=== PATIENT | female | born 1975 | race Caucasian/White ===

== ENCOUNTER → 2018-12-18 | Outpatient (CLI) | payer OTHER ==
--- NOTE | 2018-12-18 14:01 | RAD ---
EXAM: 1. Ultrasound-guided left breast biopsy with clip placement. 2. Postclip digital mammography. HISTORY: Left breast mass. Biopsy is requested. COMPARISON: 11/27/2018. FINDINGS: The procedure along with its risks and benefits were explained to the patient. She agreed to proceed. A timeout procedure was performed. The targeted hypoechoic nodule within the left upper outer breast along the deep surface of 2 larger simple cysts was visualized sonographically. The overlying skin was sterilely prepped and infiltrated with 1% lidocaine for local anesthesia. Under ultrasound guidance, 3 13-gauge core needle specimens were obtained through the lesion. After the initial passes, the lesion disappeared, consistent with rupture of a complicated cyst. A postbiopsy clip was placed at its former site under ultrasound guidance. Pressure was held to hemostasis. There were no immediate complications. Digital images were obtained on the left CC and MLO projections and interpreted on a dedicated workstation. These demonstrate the postbiopsy clip and corresponds with the site of the target lesion. Adjacent obscured nodules are consistent with the adjacent benign cysts. IMPRESSION: 1. Successful ultrasound-guided biopsy of the left upper outer breast mass. It disappeared after biopsy consistent with a cyst. 2. The postbiopsy clip corresponds with the target lesion.
--- NOTE | 2018-12-19 16:06 | PATHOLOGY ---
[facility] Accession Number: [id number] . 01 Material submitted: . breast - LEFT BREAST TISSUE, 2:00, CMFN. Modifiers: left, 2:00 . 01 Clinical history: . Left breast mass . 02 Diagnosis: Breast tissue, left breast mass 2:00 needle biopsies: - Apparent cystic change with fibrosis and focal granulomatous inflammation. (JPM:bernardino; 12/19/2018) QMS/12/19/2018 . 02 Comment: There is no atypia or evidence of malignancy. Correlate with mammographic findings. (JPM:bernardino; 12/19/2018) . 02 Electronically signed: . Diogenes Ferrer MD, Pathologist NPI- [id number] . 01 Gross description: . Received in formalin labeled "Jah, Jasmin, left breast 2:00," and additionally labeled on the requisition as "7 cm FN," are multiple needle cores of yellow-lopez fibrofatty tissue measuring 0.5 x 0.4 x 0.2 cm in aggregate dimensions. The tissue is submitted in its entirety in cassette A1 through A3. The cold ischemic time is 5 minutes. The total formalin fixation time is 8 hours and 10 minutes. (TSD; 12/18/2018) TOB/TOB . 02 Pathologist provided ICD-10: N60.32 . 02 CPT . 232826 Specimen Comment: A courtesy copy of this report has been sent to Specimen Comment: [phone], . Specimen Comment: Report sent to / Performed at: [address], [place], [place] [id number] MD Amari Ryan MD Phone: [phone] Performed at: 02 [facility] [address] [place] [id number] MD Diogenes Ferrer MD Phone: [phone]
== END | disposition home or self-care (01) ==
LOC: US 12:30
PROVIDERS: ATTEND Family Medicine
DX: N61.0 Mastitis without abscess (principal); N60.32 Fibrosclerosis of left breast
CPT/HCPCS: 19083; 77065; 88305; C1713; 19081; 76942

== ENCOUNTER 2021-09-01 21:15 | Emergency (ER) | payer OTHER ==
[~2021-09-01] VITALS: Ht 154.9 cm; Wt 72.7 kg
[2021-09-01 21:41] LABS: BARBITURATES NEG (NEG); BENZODIAZEPINES NEG (NEG); CANNABINOIDS NEG (NEG); COCAINE NEG (NEG); METHADONE NEG (NEG); OPIATES NEG (NEG); PHENCYCLIDINE NEG (NEG)
[2021-09-01 21:42] LABS: AMPHETAMINE/METHAMPHETAMINE NEG (NEG)
--- NOTE | 2021-09-01 21:48 | PHYS DOC ---
General Adult EDM: Chief Complaint: CHEST PAIN HPI: HPI: 46-year-old AA female reports past medical history of hypertension and asthma (also reports she has not required taken medication in years for these diseases), presents to the ED with complaints of left-sided chest pain that has been constant since 6:30 PM. Reports pain is pressure and squeezing in nature and is present in her left chest and her left arm (initially reported it as radiating, later denies radiation). Reports associated coughing and dizziness when walking. States pain is also exacerbated when leaning forward and to her left side. Reports no associated nausea, vomiting, diaphoresis, back pain or syncope. Reports no alcohol, cocaine or drug use. States her blood pressure is normally 125-135/72. States she has had intermittent chest pain for the past 3 to 4 weeks and has not been evaluated by a physician for this. States the pain is 7/10 and has never been this bad. Reports family history of heart disease on her mother's side, diabetes and ischemic strokes. Is currently on her menses. Has received her Pfizer vaccine but no booster. No history of COVID-19 infection. Denies any excessive caffeine use or energy drinks. History of tubal ligation and forehead benign lesion removed at [facility]. Takes no routine prescribed medications. No personal or family history of AAA, AAD, CTD (ehlos danlos or marfans), cardiac arrhythmias (need for AICD), sudden or unexplainable (under 50 years of age or with exertion), or clotting disorders. States she's been crying regarding these sxs that started while she was doing laundry. Reports multiple stressors including moving to a different apartment, multiple children and dealing with the recent loss of her uncle and brother. States she's getting "some sleep." Review of Systems: Review of Systems: Constitutional: Denies fever or chills. [] Eyes: Denies change in visual acuity. [] HENT: Denies nasal congestion or sore throat. [] Respiratory: Denies shortness of breath or hemoptysis Cardiovascular: Denies syncope or edema. [] GI: Denies abdominal pain, nausea, vomiting, bloody stools or diarrhea. [] : Denies dysuria or hematuria Musculoskeletal: Denies back pain or joint pain. [] Integument: Denies rash or diaphoresis Neurologic: Denies headache, focal weakness or sensory changes. [] Endocrine: Denies polyuria or polydipsia. [] Lymphatic: Denies swollen glands. [] Psychiatric: Denies depression or anxiety. [] Heart Score: C/O Chest Pain: Yes HEART Score for Chest Pain: HEART Score for Chest Pain Response (Comments) Value History Slighlty/Non-Suspicious 0 ECG Nonspecific Repolarizatio 1 Age < 45 0 Risk Factors 1 or 2 Risk Factors 1 Troponin < Normal Limit 0 Total 2 Risk Factors: Risk Factors: DM, Current or recent (<one month) smoker, HTN, HLP, family history of CAD, obesity. Risk Scores: Score 0 - 3: 2.5% MACE over next 6 weeks - Discharge Home Score 4 - 6: 20.3% MACE over next 6 weeks - Admit for Clinical Observation Score 7 - 10: 72.7% MACE over next 6 weeks - Early Invasive Strategies Allergies: Allergies: Allergies Coded Allergies Type Severity Reaction Last Updated Verified No Known Drug Allergies 03/25/14 No Physical Exam: PE: Constitutional: Well developed, well nourished, no acute distress, non-toxic appearance, blood pressure on exam 182/90 and 164/85 HENT: Normocephalic, atraumatic, Eyes: EOMI, conjunctiva normal, no discharge, glossy eyes, has been crying Neck: Normal range of motion, supple, Cardiovascular: S1/2 present, regular rhythm Lungs & Thorax: Speaking in full sentences, bilateral equal chest rise, no tachypnea or increased work of breathing Abdomen: soft, no tenderness, Skin: Warm, dry, no erythema, no rash. [] Back: No tenderness, no CVA tenderness. [] Extremities: No tenderness, no cyanosis, no lower extremity edema Neurologic: Alert and oriented X 3, normal motor function, normal sensory function, no focal deficits noted. [] Psychologic: Affect normal, judgement normal, very anxious mood-is obviously overwhelmed and stressed regarding the nature of her chest pain, has been crying in the ed Current Patient Data: Labs: Laboratory Tests Test 09/01/21 21:23 09/01/21 21:26 Urine Opiates Screen Neg (NEG) Urine Methadone Screen Neg (NEG) Urine Barbiturates Neg (NEG) Urine Phencyclidine Screen Neg (NEG) Urine Amphetamine/Methamphetamine Neg (NEG) Urine Benzodiazepines Screen Neg (NEG) Urine Cocaine Screen Neg (NEG) Urine Cannabinoids Screen Neg (NEG) Urine Ethyl Alcohol Neg (NEG) POC Urine HCG, Qualitative Hcg negative (Negative) EKG: EKG: Sinus rhythm 93 bpm, no axis deviation, normal intervals, T wave inversion lead III, questionable U waves on EKG, no obvious ST elevation ST depression 2226 sinus bradycardia 56 bpm, no axis deviation, normal intervals, T wave inversion lead III, no ST elevation ST depression Radiology/Procedures: Radiology/Procedures: IMAGING REPORT Signed PATIENT: HARMONY DENNEY ACCOUNT: [id number] : 1975 LOCATION: ER AGE: 46 SEX: F EXAM STATUS: REG ER ORD. PHYSICIAN: LILLIANA ERICKSON DO REASON: cp PROCEDURE: PORTABLE CHEST 1V EXAM: XR CHEST 1V 09/01/2021 9:48 PM CLINICAL INDICATION: Chest pain COMPARISON: None TECHNIQUE: AP upright view of the chest FINDINGS: The heart and mediastinum are normal. Lungs are well-expanded and clear. No consolidation, pleural effusion, or pneumothorax. Pulmonary vascularity is normal. The thoracic skeleton is intact. IMPRESSION: Normal chest radiograph. Electronically signed by: Geraldine Damon MD (09/02/2021 12:06 AM) [id number] DICTATED and SIGNED BY: GERALDINE DAMON MD DATE: 09/02/21 [id number] 0 Impression: 0 criteria No need for further workup, as <2% chance of PE. If no criteria are positive and clinicians pre-test probability is <15%, PERC Rule criteria are satisfied. Course & Med Decision Making: Course & Med Decision Making Pertinent Labs and Imaging studies reviewed. (See chart for details) Concern for intermittent, atypical chest pain lasting for the past 3 to 4 weeks in a mild risk for Mace, low heart score patient. Patient PERC rule negative, D-dimer within normal limits. 2 troponins with no change. Chest x-ray unremarkable. Urinalysis does show blood but patient is on her menses. Patient hemodynamically stable with intermittent episodes of asymptomatic hypertension, no renal damage. Patient declines any analgesia in emergency department. On reevaluation patient reports pain is almost resolved and she would refuse admission if recommended. Patient states she feels much better and wishes to return home. Dissection always considered but given anxiety, suspect blood pressure is more related to stress. D-dimer wnl and cxr with no abnormalities, no wide mediastinum. Patient is extremely anxious on exam-is driving home, thus anxiolytic not given in the emergency department. Will prescribe trial of Atarax. Patient understands strict ED return precautions for worsening symptoms including syncope, chest pressure heaviness or tightness, nausea, vomiting, diaphoresis or worsening pain. Encouraged urgent outpatient follow-up with PMD for routine care and cardiology for definitive management of atypical chest pain in the next few weeks. Life-threatening processes were considered but are low suspicion at this time, given history, physical exam and ED workup. Pt was educated on all prescription medications and adverse effects. All patient's questions were answered and pt was stable at time of discharge. Life/limb-threatening differential includes but is not limited to, acute myocardial infarction, aortic dissection, congestive heart failure, esophageal injury including rupture, surgical abdomen, arrhythmia, cardiomyopathy, myocarditis, pericarditis, peptic ulcer disease, pneumomediastinum, pneumonia, pneumothorax, pulmonary embolus, unstable angina, rib fracture, contusion, pericardial tamponade or effusion, traumatic injury including mediastinal hemorrhage or hematoma, or pulmonary contusion. I have spoken with the patient and/or caregivers. I explained the patient's condition, diagnoses and treatment plan based on the information available to me at this time. I have answered the patient and/or caregiver's questions and addressed any concerns. The patient and/or caregivers have a good understanding of patient's diagnosis, condition and treatment plan as can be expected at this point. Vital signs have been stable. Patient's condition is stable and appropriate for discharge from the emergency department. Patient will pursue further outpatient evaluation with primary care physician or other designated or consulting physician as outlined in the discharge instructions. The patient and/or caregivers are agreeable to this plan of care and follow-up instructions have been explained in detail. The patient and/or caregivers have received these instructions in written form and have expressed an understanding of the discharge instructions. The patient and/or caregivers are aware that any significant change of condition or worsening of symptoms should prompt immediate return to this or the closest emergency department or call to 911. Kaya Disclaimer: Kaya Disclaimer: This electronic medical record was generated, in whole or in part, using a voice recognition dictation system. Departure Departure Impression: Primary Impression: Chest pain Disposition: HOME / SELF CARE / HOMELESS Condition: STABLE Referrals: DEMARIO JOHNSON MD (PCP) Follow-up with your primary care physician in 24 to 48 hours OR FOLLOW UP WITH FAMILY MEDICINE: [address] [place] [address] Patient Instructions: Anxiety and Panic Attacks, Chest Pain (Nonspecific) Additional Instructions: FOLLOW UP WITH CARDIOLOGY: FOR DEFINITIVE MANAGEMENT of chest pain [facility] [address] [place] [place] [address] EMERGENCY DEPARTMENT GENERAL DISCHARGE INSTRUCTIONS Thank you for coming to [facility] Emergency Department (ED) today and trusting us with you care. We trust that you had a positive experience in our Emergency Department. If you wish to speak to the department management, you may call the Director at [phone]. YOUR FOLLOW UP INSTRUCTIONS ARE FOLLOWS: 1. Do you have a private Doctor? If you do not have a private doctor, please ask for a resource list of physicians or clinics that may be able to assist you with follow up care. 2. The Emergency Physicain has interpreted your x-rays. The X-Ray specialist will also review them. If there is a change in the findings, you will be notified in 48 hours when at all possible. 3. A lab test or culture has been done, your results will be reviewed and you will be notified if you need a change in treatment. ADDITIONAL INSTRUCTIONS AND INFORMATION: 1. Your care today has been supervised by a physician who is specially trained in emergency care. Many problems require more than one evaluation for a complete diagnosis and treatment. We recommend that you schedule your follow up appointment as recommended to ensure complete treatment of you illness or injury. If you are unable to obtain follow up care and continue to have a problem, or if your condition worsens, we recommend that you return to the ED. 2. We are not able to safely determine your condition over the phone nor are we able to give sound medical advice over the phone. For these safety reasons, if you call for medical advice we will ask you to come to the ED for further evaluation. 3. If you have any questions regarding these discharge instructions please call the ED at [phone]. SAFETY INFORMATION: In the interest of safety, wellness, and injury prevention; we encourage you to wear your sealbelt, if you smoke; quite smoking, and we encourage family to use a protective helmet for bicycling and other sporting events that present an increased risk for head injury. IF YOUR SYMPTOMS WORSEN OR NEW SYMPTOMS DEVELOP, OR YOU HAVE CONCERNS ABOUT YOUR CONDITION; OR IF YOUR CONDITION WORSENS WHILE YOU ARE WAITING FOR YOUR FOLLOW UP APPOINTMENT; EITHER CONTACT YOUR PRIMARY CARE DOCTOR, THE PHYSICIAN WHOSE NAME AND NUMBER YOU WERE GIVEN, OR RETURN TO THE ED IMMEDIATELY. Scripts Hydroxyzine Hcl (HYDROXYZINE HCL) 25 Mg Tablet 1 TAB PO TID for anxiety, #30 TAB Prov: LILLIANA ERICKSON DO 09/02/21 LILLIANA ERICKSON DO Sep 01, 2021 21:48
[2021-09-01 21:49] LABS: BASO # 0.1 x10^3/uL (0.0-0.2); BASO % 1 % (0-3); EOS # 0.2 x10^3/uL (0.0-0.7); EOS % 2 % (0-3); HEMATOCRIT 35.1 % (36.0-47.0); HEMOGLOBIN 11.2 g/dL (12.0-15.5); LYMPH % 42 % (24-48); MEAN CORPUSCULAR HEMOGLOBIN 26 pg (25-35); MEAN CORPUSCULAR HGB CONC 32 g/dL (31-37); MEAN CORPUSCULAR VOLUME 81 fL (79-100); MONO # 0.6 x10^3/uL (0.0-1.1); MONO % 7 % (0-9); NEUT # 4.6 x10^3/uL (1.8-7.7); NEUT % 48 % (31-73); PLATELET COUNT 335 x10^3/uL (140-400); RED BLOOD COUNT 4.35 x10^6/uL (3.50-5.40); WHITE BLOOD COUNT 9.6 x10^3/uL (4.0-11.0)
[2021-09-01 21:57] LABS: CALCIUM 8.4 mg/dL (8.5-10.1); CREATININE 0.8 mg/dL (0.6-1.0); GFR 77.6; POTASSIUM 4.2 mmol/L (3.5-5.1)
[2021-09-01 22:03] LABS: ALBUMIN 3.4 g/dL (3.4-5.0); ALBUMIN/GLOBULIN RATIO 0.8 (1.0-1.7); MAGNESIUM 2.2 mg/dL (1.8-2.4); TOTAL BILIRUBIN 0.2 mg/dL (0.2-1.0); TOTAL PROTEIN 7.8 g/dL (6.4-8.2)
[2021-09-02] MEDS ORDERED: NITROGLYCERIN SUBLINGUAL 0.4 MG BOTTLE OF 25. SL PRN
[2021-09-02 00:03] LABS: BILIRUBIN,URINE NEGATIVE (NEG); CLARITY,URINE CLEAR; COLOR,URINE YELLOW; NITRITE,URINE NEGATIVE (NEG); PH,URINE 5.5 (<5.0-8.0); PROTEIN,URINE NEGATIVE (NEG-TRACE); UROBILINOGEN,URINE 0.2 mg/dL (0.2 mg/dL)
--- NOTE | 2021-09-02 00:08 | RAD ---
EXAM: XR CHEST 1V 09/01/2021 9:48 PM CLINICAL INDICATION: Chest pain COMPARISON: None TECHNIQUE: AP upright view of the chest FINDINGS: The heart and mediastinum are normal. Lungs are well-expanded and clear. No consolidatio n, pleural effusion, or pneumothorax. Pulmonary vascularity is normal. The thoracic skeleton is int act. IMPRESSION: Normal chest radiograph. Electronically signed by: Geraldine Damon MD (09/02/2021 12:06 AM) [id number]
[2021-09-02 00:13] LABS: BACTERIA,URINE 0 /HPF (0-FEW)
[2021-09-02] MEDS ORDERED: HYDR25TA PO (01:45)
[2021-09-02 01:47] VITALS: BP 142/84
--- NOTE | 2021-09-02 03:47 | EKG ---
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
--- NOTE | 2021-09-02 03:48 | EKG ---
[facility] [address] [place] [address] Test Date: 2021-09-01 Test Time: 21:27:14 Pat Name: HARMONY DENNEY Department: Room: Gender: F [employer]: : 1975 Requested By: LILLIANA ERICKSON Order Number: [id number] Reading MD: Leonidas Echevarria Measurements Intervals [place] Rate: 93 P: 40 MD: 148 QRS: 7 QRSD: 82 T: 27 QT: 336 QTc: 420 Interpretive Statements SINUS RHYTHM T ABNORMALITY IN HIGH LATERAL LEADS INFERIOR LEADS ABNORMAL ECG RI6.02 No previous ECG available for comparison Electronically Signed On 09-03-2021 13:56:05 TRIM MOUNTER by Leonidas Echevarria
== END 2021-09-02 02:00 | disposition home or self-care (01) ==
LOC: ER 21:15
DX: R07.89 Other chest pain (principal); J45.909 Unspecified asthma, uncomplicated; I10 Essential (primary) hypertension
CPT/HCPCS: 36415; 71045; 80053; 80307; 81001; 81025; 83690; 83735; 84484; 85025; 85379; 87086; 93005; 99285-25